=== PATIENT | female | born 1950 | race Caucasian/White ===

== ENCOUNTER 2017-07-24 13:04 | Observation (INO) | payer OTHER ==
[~2017-07-24] VITALS: Ht 162.6 cm; Wt 81.3 kg
--- NOTE | 2017-07-24 14:55 | EMERGENCY ROOM VISIT NOTE ---
History First contact with patient: 14:39 Chief Complaint: FLANK PAIN Stated Complaint: PAIN IN L SIDE History of Present Illness The patient is a 66 year old female who presents to the Emergency Room with complaints of left lower abdominal pain started 2 days ago. She describes it as a dull, aching sensation that is worse with movement. She also is complaining of feverish symptoms with body aches and chills. She thought that maybe she just had to have a bowel movement. She took milk of magnesia. She had a bowel movement that was reportedly normal. No blood in her stool or dark stools. She denies any vomiting. Her bowel movement did not change the pain. She denies any previous surgeries on her abdomen. No sick contacts. Review of Systems 10 system review performed and negative unless noted in HPI or below Past Medical/Surgical History Migraines Family History Diverticulitis, diabetes Social History Smoking Status: Never Smoker Marital Status: Housing Status: lives with significant other Current/Historical Medications Scheduled Calcium Carbonate (Tums), 500 MG PO DAILY Cholecalciferol (Kp Vitamin D), 2,000 UNITS PO DAILY Levothyroxine Sodium (Levothyroxine Sodium), 112 MCG PO DAILY Lovastatin (Mevacor), 20 MG PO Q2D Magnesium Hydroxide (Milk Of Magnesia), 30 ML PO DAILY Omeprazole (Prilosec), 20 MG PO DAILY Sumatriptan Succinate (Imitrex), 1 DOSE PO UD Physical Exam Vital Signs Date Time Temp Pulse Resp B/P (MAP) Pulse Ox O2 Delivery O2 Flow Rate FiO2 07/24/17 18:04 77 15 111/74 94 Room Air 07/24/17 17:06 76 14 117/67 95 Room Air 07/24/17 16:03 86 07/24/17 15:58 85 16 112/87 95 Room Air 07/24/17 15:57 95 Room Air 07/24/17 15:06 78 17 109/82 95 Room Air 07/24/17 13:22 36.9 90 20 127/79 95 Room Air Physical Exam VITALS: Vitals are noted on the nurse's note and reviewed by myself. Vital signs stable. GENERAL: 66-year-old female, in no acute distress, nondiaphoretic, well- developed well-nourished. SKIN: The skin was without rashes, erythema, edema, or bruising. HEAD: Normocephalic atraumatic. MOUTH: Mucous membranes moist. NECK: Supple without nuchal rigidity. No JVD. HEART: Regular rate and rhythm without murmurs gallops or rubs. LUNGS: Clear to auscultation bilaterally without wheezes, rales or rhonchi. No accessory muscle use. ABDOMEN: Positive bowel sounds x 4.Soft, tenderness to palpation in the left lower quadrant. Positive rebound tenderness. MUSCULOSKELETAL: No muscle atrophy, erythema, or edema noted. Normal gait. Strength 5/5 throughout. NEURO: Patient was alert and oriented to person place and time. Normal sensation to touch. No focal neurological deficits. Medical Decision & Procedures ER Provider Diagnostic Interpretation: ABD/PELVIS IV AND ORAL CONT CLINICAL HISTORY: 66 years-old Female presenting with LLQ abd pain ? diverticulitis. TECHNIQUE: Multidetector CT of the abdomen and pelvis was performed after the administration of oral and intravenous contrast. IV contrast: 94 mL of Optiray 320. A dose lowering technique was used consistent with the principles of ALARA (as low as reasonably achievable). COMPARISON: None. CT DOSE (mGy.cm): The estimated cumulative dose is 704.11 mGy.cm. FINDINGS: Tools Developer topogram: Unremarkable. Lung bases: Dependent reticulation. Nodular and groundglass opacity along the major fissure in the lingula. Normal heart size. No pericardial or pleural effusion. Liver: Normal morphology. Well-defined hypodensities in the liver, indeterminate but likely hepatic cysts or hamartomas. Minimal linear branching hypodensities extending from the right hepatic lobe lesion, which could suggest focal biliary ductal dilatation or less likely vascular thrombosis. Patent hepatic vasculature. Biliary: No intrahepatic or extrahepatic biliary ductal dilatation. Normal gallbladder. Pancreas: Duodenal diverticulum noted along the descending portion immediately superior to the level of the pancreatic head. Spleen: Normal. Adrenal glands: Normal. Kidneys and ureters: Contrast opacifies the renal collecting systems bilaterally. No hydronephrosis. Few left parapelvic cysts noted. Ureters normal. Bladder: Normal. Pelvic organs: Uterus normal. Prominent 2.2 cm simple appearing cyst in the left ovary. Bowel: Diverticulosis of the sigmoid colon. Along the junction of the descending and sigmoid colon, wall thickening and pericolonic inflammatory change evident. No convincing evidence of extraluminal gas adjacent fluid collection. Normal appendix. No bowel obstruction. Large hiatal hernia. Duodenal diverticulum. Peritoneal cavity: No free fluid or intraperitoneal gas. Vasculature: Atherosclerosis of the normal caliber abdominal aorta. IVC patent. Lymph nodes: No enlarged lymph nodes in the abdomen or pelvis. Abdominal wall: Normal. Musculoskeletal: Normal. IMPRESSION: 1. Evidence of acute uncomplicated diverticulitis of the sigmoid colon. No evidence of abscess or perforation. Follow-up colonoscopy after treatment is recommended given the patient's age to exclude neoplasm. 2. Large hiatal hernia. 3. 2.2 cm simple appearing cyst in the left ovary. In the setting of a late postmenopausal female, a simple appearing cyst less than 3 cm would be considered benign and no further follow-up would be recommended per the [employer] incidental findings committee recommendations for managing incidental findings on abdominal and pelvic CT and MRI. 4. Dependent opacities in the lungs may represent atelectasis. Nodularity in the lingula may also represent atypical atelectasis. Electronically signed by: Dami Forman M.D. 07/24/2017 6:11 PM Dictated Date/Time: 07/24/2017 6:02 PM The status of this report is Signed. Draft = Not yet reviewed or approved by Radiologist. Signed = Reviewed and approved by Radiologist. Laboratory Results 07/24/17 15:04 Red Blood Count 4.26, Mean Corpuscular Volume 91.1, Mean Corpuscular Hemoglobin 30.3, Mean Corpuscular Hemoglobin Concent 33.2, Mean Platelet Volume 9.2, Neutrophils (%) (Auto) 70.7, Lymphocytes (%) (Auto) 19.1, Monocytes (%) (Auto) 9.1, Eosinophils (%) (Auto) 0.6, Basophils (%) (Auto) 0.2, Neutrophils # (Auto) 4.64, Lymphocytes # (Auto) 1.25, Monocytes # (Auto) 0.60, Eosinophils # (Auto) 0.04, Basophils # (Auto) 0.01 07/24/17 15:04 Test 07/24/17 14:45 07/24/17 15:04 Urine Color YELLOW Urine Appearance CLEAR (CLEAR) Urine pH 5.5 (4.5-7.5) Urine Specific [place] 1.013 (1.000-1.030) Urine Protein NEG (NEG) Urine Glucose (UA) NEG (NEG) Urine Ketones TRACE (NEG) Urine Occult Blood 1+ (NEG) Urine Nitrite NEG (NEG) Urine Bilirubin NEG (NEG) Urine Urobilinogen NEG (NEG) Urine Leukocyte Esterase SMALL (NEG) Urine WBC (Auto) 5-10 /hpf (0-5) Urine RBC (Auto) 0-4 /hpf (0-4) Urine Hyaline Casts (Auto) 1-5 /lpf (0-5) Urine Epithelial Cells (Auto) >30 /lpf (0-5) Urine Bacteria (Auto) NEG (NEG) White Blood Count 6.56 K/uL (4.8-10.8) Red Blood Count 4.26 M/uL (4.2-5.4) Hemoglobin 12.9 g/dL (12.0-16.0) Hematocrit 38.8 % (37-47) Mean Corpuscular Volume 91.1 fL (80-100) Mean Corpuscular Hemoglobin 30.3 pg (25-34) Mean Corpuscular Hemoglobin Concent 33.2 g/dl (32-36) Platelet Count 210 K/uL (130-400) Mean Platelet Volume 9.2 fL (7.4-10.4) Neutrophils (%) (Auto) 70.7 % Lymphocytes (%) (Auto) 19.1 % Monocytes (%) (Auto) 9.1 % Eosinophils (%) (Auto) 0.6 % Basophils (%) (Auto) 0.2 % Neutrophils # (Auto) 4.64 K/uL (1.4-6.5) Lymphocytes # (Auto) 1.25 K/uL (1.2-3.4) Monocytes # (Auto) 0.60 K/uL (0.11-0.59) Eosinophils # (Auto) 0.04 K/uL (0-0.5) Basophils # (Auto) 0.01 K/uL (0-0.2) RDW Standard Deviation 43.4 fL (36.4-46.3) RDW Coefficient of Variation 13.1 % (11.5-14.5) Immature Granulocyte % (Auto) 0.3 % Immature Granulocyte # (Auto) 0.02 K/uL (0.00-0.02) Anion Gap 6.0 mmol/L (3-11) Est Creatinine Clear Calc Drug Dose 74.2 ml/min Estimated GFR () 93.3 Estimated GFR (Non- 80.5 BUN/Creatinine Ratio 10.8 (10-20) Calcium Level 9.2 mg/dl (8.5-10.1) Total Bilirubin 0.6 mg/dl (0.2-1) Aspartate Amino Transf (AST/SGOT) 21 U/L (15-37) Alanine Aminotransferase (ALT/SGPT) 26 U/L (12-78) Alkaline Phosphatase 84 U/L (45-117) Total Protein 7.2 gm/dl (6.4-8.2) Albumin 3.4 gm/dl (3.4-5.0) Globulin 3.8 gm/dl (2.5-4.0) Albumin/Globulin Ratio 0.9 (0.9-2) Lipase 133 U/L (73-393) Medications Administered Medications (Trade) Dose Ordered Sig/Ann Route Start Time Stop Time Status Last Admin Dose Admin Morphine Sulfate (MoRPHine SULFATE INJ) 4 mg ONE ONCE IV 07/24/17 15:00 07/24/17 15:01 DC 07/24/17 15:06 4 MG Sodium Chloride 1,000 ml @ 999 mls/hr Q1H1M ONCE IV 07/24/17 15:00 07/24/17 16:00 DC 07/24/17 15:06 999 MLS/HR Hydromorphone HCl (Dilaudid Inj) 0.5 mg NOW STAT IV 07/24/17 15:48 07/24/17 15:49 DC 07/24/17 15:54 0.5 MG ED Course Patient was seen and examined Vital signs including blood pressure were reviewed medications list was verified with patient Labs were obtained, and a saline lock was established The patient was hydrated with 1 L of normal saline. She was given morphine 4 mg IV Imaging was performed and reviewed On reevaluation, the patient was still complaining of pain. She was given Dilaudid 0.5 mg IV. She was also nauseated. She was given Zofran 4 mg IV We reviewed the results of the CT. She voiced understanding. She was still very nauseated. She was given another dose of Zofran 4 mg IV She was then given Phenergan 25 mg IM She was given 1 dose of Cipro 400 mg IV and Flagyl 500 mg IV The case was discussed with case management and my attending physician. I spoke with the [facility] hospitalist service, who is in agreement to admit the patient for further treatment Medical Decision DIFFERENTIAL DIAGNOSIS: Gastroenteritis, Hepatitis, cholecystitis, cholangitis, biliary colic, pancreatitis, appendicitis, inguinal hernia, nephrolithiasis, inflammatory bowel disease, mesenteric adenitis, peptic ulcer disease, GERD, gastritis, pancreatitis,, bowel obstruction, splenic infarct, diverticulitis, mesenteric ischemia, metabolic, peritonitis, among others. This patient is a 66-year-old female that presented to the emergency department with left lower quadrant abdominal pain and nausea. The patient's physical exam revealed a tenderness in the left lower quadrant. There was concern for diverticulitis. A CT confirmed sigmoid diverticulitis. I do not think the patient will do well if she was discharged home as she is still very nauseated after multiple anti nausea medications. The case was discussed with the hospitalist. They are in agreement for nausea. Of note, the patient also has a left ovarian cyst. I do not however think that this is the cause of her abdominal pain. She may follow-up with her primary care physician or her behavioral health tech for this. Impression Primary Impression: Diverticulitis large intestine Departure Information Referrals No Doctor, Assigned (PCP) Patient Instructions My [facility]
[2017-07-24] MEDS ORDERED: SODIUM CHLORIDE 0.9% 1000ML 1,000 ML IV ONE (15:00)
[2017-07-24] MEDS ORDERED: MoRPHine SULFATE 4 MG/ML 1 ML CARP\\VIAL IV ONE (15:00)
[2017-07-24] MEDS ORDERED: PRMVC PV (15:10)
[2017-07-24 15:31] LABS: URINE APPEARANCE CLEAR (CLEAR); URINE BILIRUBIN NEG (NEG); URINE COLOR YELLOW; URINE EPITHELIAL CELL AUTO >30 /lpf (0-5); URINE NITRITE NEG (NEG); URINE PH 5.5 (4.5-7.5); URINE SPECIFIC GRAVITY 1.013 (1.000-1.030); UROBILINOGEN NEG (NEG)
[2017-07-24 15:32] LABS: MANUAL MICROSCOPIC REQUIRED? NO; REVIEW REQ? NO
[2017-07-24 15:45] LABS: BUN/CREATININE RATIO 10.8 (10-20); CALCIUM 9.2 mg/dl (8.5-10.1); CREATININE 0.77 mg/dl (0.60-1.20); POTASSIUM 3.9 mmol/L (3.5-5.1)
[2017-07-24 15:48] LABS: ALB/GLOB RATIO 0.9 (0.9-2)
[2017-07-24] MEDS ORDERED: HYDROmorphone INJ 0.5 MG/0.5 ML SYR IV STA (15:48)
[2017-07-24 16:03] LABS: BASO % 0.2 %; BASO ABS # 0.01 K/uL (0-0.2); COMPLETE YES; EOS % 0.6 %; HEMATOCRIT 38.8 % (37-47); IG% 0.3 %; LYMPH % 19.1 %; LYMPH ABS # 1.25 K/uL (1.2-3.4); MEAN CELL VOLUME 91.1 fL (80-100); MEAN CORPUSCULAR HEMOGLOBIN 30.3 pg (25-34); MEAN CORPUSCULAR HGB CONC 33.2 g/dl (32-36); MEAN PLATELET VOLUME 9.2 fL (7.4-10.4); MONO % 9.1 %; NEUT % 70.7 %; PLATELET COUNT 210 K/uL (130-400); RED BLOOD COUNT 4.26 M/uL (4.2-5.4); WHITE BLOOD COUNT 6.56 K/uL (4.8-10.8)
[2017-07-24] MEDS ORDERED: OPTIRAY 320 IV PRN (17:45)
--- NOTE | 2017-07-24 18:13 | DIAGNOSTIC IMAGING REPORT ---
ABD/PELVIS IV AND ORAL CONT CLINICAL HISTORY: 66 years-old Female presenting with LLQ abd pain ? diverticulitis. TECHNIQUE: Multidetector CT of the abdomen and pelvis was performed after the administration of oral and intravenous contrast. IV contrast: 94 mL of Optiray 320. A dose lowering technique was used consistent with the principles of ALARA (as low as reasonably achievable). COMPARISON: None. CT DOSE (mGy.cm): The estimated cumulative dose is 704.11 mGy.cm. FINDINGS: Community Support Associate topogram: Unremarkable. Lung bases: Dependent reticulation. Nodular and groundglass opacity along the major fissure in the lingula. Normal heart size. No pericardial or pleural effusion. Liver: Normal morphology. Well-defined hypodensities in the liver, indeterminate but likely hepatic cysts or hamartomas. Minimal linear branching hypodensities extending from the right hepatic lobe lesion, which could suggest focal biliary ductal dilatation or less likely vascular thrombosis. Patent hepatic vasculature. Biliary: No intrahepatic or extrahepatic biliary ductal dilatation. Normal gallbladder. Pancreas: Duodenal diverticulum noted along the descending portion immediately superior to the level of the pancreatic head. Spleen: Normal. Adrenal glands: Normal. Kidneys and ureters: Contrast opacifies the renal collecting systems bilaterally. No hydronephrosis. Few left parapelvic cysts noted. Ureters normal. Bladder: Normal. Pelvic organs: Uterus normal. Prominent 2.2 cm simple appearing cyst in the left ovary. Bowel: Diverticulosis of the sigmoid colon. Along the junction of the descending and sigmoid colon, wall thickening and pericolonic inflammatory change evident. No convincing evidence of extraluminal gas adjacent fluid collection. Normal appendix. No bowel obstruction. Large hiatal hernia. Duodenal diverticulum. Peritoneal cavity: No free fluid or intraperitoneal gas. Vasculature: Atherosclerosis of the normal caliber abdominal aorta. IVC patent. Lymph nodes: No enlarged lymph nodes in the abdomen or pelvis. Abdominal wall: Normal. Musculoskeletal: Normal. IMPRESSION: 1. Evidence of acute uncomplicated diverticulitis of the sigmoid colon. No evidence of abscess or perforation. Follow-up colonoscopy after treatment is recommended given the patient's age to exclude neoplasm. 2. Large hiatal hernia. 3. 2.2 cm simple appearing cyst in the left ovary. In the setting of a late postmenopausal female, a simple appearing cyst less than 3 cm would be considered benign and no further follow-up would be recommended per the [employer] incidental findings committee recommendations for managing incidental findings on abdominal and pelvic CT and MRI. 4. Dependent opacities in the lungs may represent atelectasis. Nodularity in the lingula may also represent atypical atelectasis. Electronically signed by: Dami Forman M.D. 07/24/2017 6:11 PM Dictated Date/Time: 07/24/2017 6:02 PM
[2017-07-24] MEDS ORDERED: ONDANSETRON INJ 2 MG/ML 2 ML VIAL IV PRN ×2 (18:15→20:30)
[2017-07-24] MEDS ORDERED: CIPROFLOXACIN 400MG / 200ML D5W IV STA (18:37)
[2017-07-24] MEDS ORDERED: METRONIDAZOLE 500MG / 100ML NSS IV STA (18:37)
[2017-07-24] MEDS ORDERED: PROMETHAZINE HCL INJ 25 MG/ML 1 ML VIAL IM STA (18:37)
--- NOTE | 2017-07-24 20:24 | EMERGENCY ROOM VISIT NOTE ---
ED Visit Note First contact with patient: 14:39 HPI: LLQ abd pain PE: AFVSS, uncomfortable but NAD NC/AT dry MM RRR, no murmurs CTAB Abd +LLQ TTP. no pertioneal signs Ext: no edema, erythema Neuro: grossly intact Plan: CT +uncomplicated diverticulitis. However considering patient uncomfortable with nausea will admit. ABX. I reviewed the patient's past medical history, medications, and visit nursing notes. I discussed the case with the physician assistant department manager, examined the patient, and agree with the findings and plan as documented in the physician assistants note.
[2017-07-24] MEDS ORDERED: ALUMINUM/MAGNESIUM/SIMETH (MAALOX MAX) 30 ML UDC PO PRN (20:30)
[2017-07-24] MEDS ORDERED: ZOLPIDEM TARTRATE 5 MG TAB PO PRN (20:30)
[2017-07-24] MEDS ORDERED: MAGNESIUM HYDROXIDE SUSP 30 ML UDC PO PRN (20:30)
[2017-07-24] MEDS ORDERED: IV FLUIDS COMPLETED PRN (20:30)
[2017-07-24] MEDS ORDERED: POLYETHYLENE (MIRALAX) 17 GM PACK PO PRN (20:30)
[2017-07-24] MEDS ORDERED: HYDROmorphone INJ 0.5 MG/0.5 ML SYR IV PRN (20:30)
[2017-07-24] MEDS ORDERED: SUMATRIPTAN SUCCINATE 25 MG TAB PO PRN (20:30)
[2017-07-24] MEDS ORDERED: ACETAMINOPHEN 325 MG TAB PO PRN (20:30)
--- NOTE | 2017-07-24 21:17 | History and Physical ---
History & Physical Date & Time of Service: Jul 24, 2017 at 20:52 Chief Complaint: Pain In L Side Primary Care Physician: No Doctor, Assigned History of Present Illness Source: patient, hospital records This is a 66 year old female with PMH of PSVT s/p ablation, hypothyroidism, dyslipidemia, GERD, and other problems listed below who presents to the ED for abdominal pain. Pt is a prior patient of Dr. Hensley. Pt reports LLQ abdominal pain x 3 days. Tried taking milk of magnesia without improvement. Was able to work the past few days, but then today pain was more severe which prompted her ER visit. Has associated chills. Denies N/V at home, but reports nausea /dry heaving in ER after drinking contrast. Nausea resolved with Zofran and Phenergan. Pain is now controlled after IV morphine and Dilaudid given in ER. Had reflux today which resolved with Tums. Last BM this morning was normal. Denies fever, dizziness, palpitations, chest pain, SOB, diarrhea, hematochezia, melena, urinary changes. Last colonoscopy in 01/[address] Gonzalez showed diverticulosis. Denies prior episode of diverticulitis. Past Medical/Surgical History Medical Problems: (1) Constipation Status: Chronic (2) Dyslipidemia Status: Chronic (3) GERD (gastroesophageal reflux disease) Status: Chronic (4) Hypothyroidism Status: Chronic (5) Obesity (BMI 30.0-34.9) Status: Chronic (6) PSVT (paroxysmal supraventricular tachycardia) Permanent Comment: s/p ablation Status: Chronic Surgical Problems: (1) H/O breast surgery Status: Chronic (2) History of cataract surgery Status: Chronic Family History Diabetes mellitus MOTHER SISTER GRANDMOTHER Social History Smoking Status: Never Smoker Alcohol Use: none Drug Use: none Marital Status: Housing status: lives with significant other Occupational Status: employed (works as industrial welder) Allergies Coded Allergies: Sulfa Antibiotics (Verified Adverse Reaction, Mild, GI Symptoms, 07/24/17) Home Medications Scheduled Calcium Carbonate (Tums), 500 MG PO DAILY Cholecalciferol (Kp Vitamin D), 2,000 UNITS PO DAILY Levothyroxine Sodium (Levothyroxine Sodium), 112 MCG PO DAILY Lovastatin (Mevacor), 20 MG PO Q2D Magnesium Hydroxide (Milk Of Magnesia), 30 ML PO DAILY Omeprazole (Prilosec), 20 MG PO DAILY Sumatriptan Succinate (Imitrex), 1 DOSE PO UD Review of Systems Ten systems reviewed and negative except as noted in HPI. Physical Exam Vital Signs Date Time Temp Pulse Resp B/P (MAP) Pulse Ox O2 Delivery O2 Flow Rate FiO2 07/24/17 20:10 73 18 109/54 94 Room Air 07/24/17 18:04 77 15 111/74 94 Room Air 07/24/17 17:06 76 14 117/67 95 Room Air 07/24/17 16:03 86 07/24/17 15:58 85 16 112/87 95 Room Air 07/24/17 15:57 95 Room Air 07/24/17 15:06 78 17 109/82 95 Room Air 07/24/17 13:22 36.9 90 20 127/79 95 Room Air General Appearance: WD/WN, no apparent distress Head: normocephalic, atraumatic Eyes: normal inspection, sclerae normal ENT: hearing grossly normal, pharynx normal Neck: supple, trachea midline Respiratory/Chest: lungs clear, normal breath sounds, no respiratory distress, no accessory muscle use Cardiovascular: regular rate, rhythm, no murmur Abdomen/GI: normal bowel sounds, soft, + tenderness (LLQ. no guarding. ) Extremities/Musculoskelatal: no calf tenderness, no pedal edema Neurologic/Psych: alert, normal mood/affect, oriented x 3 Skin: normal color, warm/dry Diagnostics Laboratory Results Results Past 24 Hours Test 07/24/17 14:45 07/24/17 15:04 Range/Units Urine Color YELLOW Urine Appearance CLEAR CLEAR Urine pH 5.5 4.5-7.5 Urine Specific [place] 1.013 1.000-1.030 Urine Protein NEG NEG Urine Glucose (UA) NEG NEG Urine Ketones TRACE NEG Urine Occult Blood 1+ NEG Urine Nitrite NEG NEG Urine Bilirubin NEG NEG Urine Urobilinogen NEG NEG Urine Leukocyte Esterase SMALL NEG Urine WBC (Auto) 5-10 0-5 /hpf Urine RBC (Auto) 0-4 0-4 /hpf Urine Hyaline Casts (Auto) 1-5 0-5 /lpf Urine Epithelial Cells (Auto) >30 0-5 /lpf Urine Bacteria (Auto) NEG NEG White Blood Count 6.56 4.8-10.8 K/uL Red Blood Count 4.26 4.2-5.4 M/uL Hemoglobin 12.9 12.0-16.0 g/dL Hematocrit 38.8 37-47 % Mean Corpuscular Volume 91.1 80-100 fL Mean Corpuscular Hemoglobin 30.3 25-34 pg Mean Corpuscular Hemoglobin Concent 33.2 32-36 g/dl Platelet Count 210 130-400 K/uL Mean Platelet Volume 9.2 7.4-10.4 fL Neutrophils (%) (Auto) 70.7 % Lymphocytes (%) (Auto) 19.1 % Monocytes (%) (Auto) 9.1 % Eosinophils (%) (Auto) 0.6 % Basophils (%) (Auto) 0.2 % Neutrophils # (Auto) 4.64 1.4-6.5 K/uL Lymphocytes # (Auto) 1.25 1.2-3.4 K/uL Monocytes # (Auto) 0.60 0.11-0.59 K/uL Eosinophils # (Auto) 0.04 0-0.5 K/uL Basophils # (Auto) 0.01 0-0.2 K/uL RDW Standard Deviation 43.4 36.4-46.3 fL RDW Coefficient of Variation 13.1 11.5-14.5 % Immature Granulocyte % (Auto) 0.3 % Immature Granulocyte # (Auto) 0.02 0.00-0.02 K/uL Sodium Level 137 136-145 mmol/L Potassium Level 3.9 3.5-5.1 mmol/L Chloride Level 103 98-107 mmol/L Carbon Dioxide Level 28 21-32 mmol/L Anion Gap 6.0 3-11 mmol/L Blood Urea Nitrogen 8 7-18 mg/dl Creatinine 0.77 0.60-1.20 mg/dl Est Creatinine Clear Calc Drug Dose 74.2 ml/min Estimated GFR () 93.3 Estimated GFR (Non- 80.5 BUN/Creatinine Ratio 10.8 10-20 Random Glucose 100 70-99 mg/dl Calcium Level 9.2 8.5-10.1 mg/dl Total Bilirubin 0.6 0.2-1 mg/dl Aspartate Amino Transf (AST/SGOT) 21 15-37 U/L Alanine Aminotransferase (ALT/SGPT) 26 12-78 U/L Alkaline Phosphatase 84 45-117 U/L Total Protein 7.2 6.4-8.2 gm/dl Albumin 3.4 3.4-5.0 gm/dl Globulin 3.8 2.5-4.0 gm/dl Albumin/Globulin Ratio 0.9 0.9-2 Lipase 133 73-393 U/L Microbiology Results 07/24/17 Urine Culture, Received Pending Diagnostic Radiology ABD/PELVIS IV AND ORAL CONT CLINICAL HISTORY: 66 years-old Female presenting with LLQ abd pain ? diverticulitis. TECHNIQUE: Multidetector CT of the abdomen and pelvis was performed after the administration of oral and intravenous contrast. IV contrast: 94 mL of Optiray 320. A dose lowering technique was used consistent with the principles of ALARA (as low as reasonably achievable). COMPARISON: None. CT DOSE (mGy.cm): The estimated cumulative dose is 704.11 mGy.cm. FINDINGS: Moving Consultant topogram: Unremarkable. Lung bases: Dependent reticulation. Nodular and groundglass opacity along the major fissure in the lingula. Normal heart size. No pericardial or pleural effusion. Liver: Normal morphology. Well-defined hypodensities in the liver, indeterminate but likely hepatic cysts or hamartomas. Minimal linear branching hypodensities extending from the right hepatic lobe lesion, which could suggest focal biliary ductal dilatation or less likely vascular thrombosis. Patent hepatic vasculature. Biliary: No intrahepatic or extrahepatic biliary ductal dilatation. Normal gallbladder. Pancreas: Duodenal diverticulum noted along the descending portion immediately superior to the level of the pancreatic head. Spleen: Normal. Adrenal glands: Normal. Kidneys and ureters: Contrast opacifies the renal collecting systems bilaterally. No hydronephrosis. Few left parapelvic cysts noted. Ureters normal. Bladder: Normal. Pelvic organs: Uterus normal. Prominent 2.2 cm simple appearing cyst in the left ovary. Bowel: Diverticulosis of the sigmoid colon. Along the junction of the descending and sigmoid colon, wall thickening and pericolonic inflammatory change evident. No convincing evidence of extraluminal gas adjacent fluid collection. Normal appendix. No bowel obstruction. Large hiatal hernia. Duodenal diverticulum. Peritoneal cavity: No free fluid or intraperitoneal gas. Vasculature: Atherosclerosis of the normal caliber abdominal aorta. IVC patent. Lymph nodes: No enlarged lymph nodes in the abdomen or pelvis. Abdominal wall: Normal. Musculoskeletal: Normal. IMPRESSION: 1. Evidence of acute uncomplicated diverticulitis of the sigmoid colon. No evidence of abscess or perforation. Follow-up colonoscopy after treatment is recommended given the patient's age to exclude neoplasm. 2. Large hiatal hernia. 3. 2.2 cm simple appearing cyst in the left ovary. In the setting of a late postmenopausal female, a simple appearing cyst less than 3 cm would be considered benign and no further follow-up would be recommended per the [employer] incidental findings committee recommendations for managing incidental findings on abdominal and pelvic CT and MRI. 4. Dependent opacities in the lungs may represent atelectasis. Nodularity in the lingula may also represent atypical atelectasis. Impression Assessment and Plan ACUTE SIGMOID DIVERTICULITIS Initial episode Afebrile, no leukocytosis CT a/p- acute uncomplicated diverticulitis of sigmoid colon, no abscess or perforation, follow up colonoscopy after treatment recommended given patient's age to exclude neoplasm Continue IV Cipro and Flagyl started in ER IV fluids Clear liquid diet; advance to low residue as tolerated PRN antiemetics and analgesics Consult GI Outpatient colonoscopy in 6-8 weeks HYPOTHYROIDISM Continue levothyroxine HX PSVT S/p ablation; no acute issues DYSLIPIDEMIA Continue statin GERD Continue PPI DVT PROPHYLAXIS Heparin SQ FULL CODE DISPOSITION Observation to med / surg Followed by Dr. Hensley in the past; would like to establish with Dr. Turcios in [place] as Dr. Hensley is retiring Patient seen in collaboration with Dr. Spann. Please see her addendum. ATTENDING NOTE : Pt seen and examined at bedside , Labs and images reviewed , care co ordinated with Aruna Mayer PA-C in agreement with above H&P briefly 66 yo F with no significant past medical hx presented to Ed with complain of 2 days hx of pain /discomfort on left lower abdomen no fever , episodes of chills , pain is sharp /throbbing , non radiating no diarrhea or dark stool , had nausea , no vomiting , appetite was fair pt thought possible constipation causing her abdominal discomfort took milk of magnesia had normal bowel movement this AM ,with no relief of her symptom in the ER pt was afebrile , vitals were stable , normal white count and electrolyte CT abdomen /pelvis showed ; acute sigmoid diverticulitis P/E: Gen : very pleasant , no apparent distress noted HEENT ; sclera non icteric HT: regular Lungs; CTA Abdomen : soft, point tenderness on left lower quadrant , no rebound or guarding bowel sound active EXT ; no rash , edema or deformity Neuro; no focal deficit A/P : Acute sigmoid diverticulitis: no evidence of sepsis -admit to medical floor , IVF empiric Abx with IV Cipro and Flagyl can be transitioned to oral in next 24-48 hrs Clear liquid diet , advance to low residue diet as tolerated GI eval requested Colonoscopy last year shows diverticulosis may need out pt interval colonoscopy in few weeks after acute infections subsides -will defer to GI team for recommendation FULL CODE please refer to Aruna Mayer PA-C documentation for further discussion of chronic issues Nadya Spann MD Level of Care Telemetry Resuscitation Status FULL RESUSCITATION VTE Prophylaxis VTE Risk Assessment Done? Y/N: Yes Risk Level: Moderate Given or contraindicated: Unfractionated heparin SQ Additional Copies To Lillian Turcios D.O.
[2017-07-24 22:19] VITALS: BP 114/74; PULSE 69; TEMP 36.6; O2SAT 92; Ht 162.6 cm; Wt 81.3 kg
[2017-07-24 22:34] LABS: PARTIAL THROMBOPLASTIN RATIO 1.2; PROTHROMBIN TIME (PATIENT) 10.5 SECONDS (9.0-12.0)
[2017-07-24] MEDS: SODIUM CHLORIDE 0.9% 1000ML 1,000 ML IV SCH (22:43)
[2017-07-25 00:24] VITALS: BP 101/66; PULSE 71; TEMP 36.8; O2SAT 95
[2017-07-25] MEDS: METRONIDAZOLE / NSS 500 MG in PREMIXED NSS 100 ML IV SCH ×3 (02:23→17:37)
[2017-07-25] MEDS: LEVOTHYROXINE 112 MCG TAB PO SCH (06:51)
[2017-07-25 07:22] VITALS: BP 107/68; PULSE 70; TEMP 36.8; O2SAT 96
[2017-07-25] MEDS ORDERED: MAGNESIUM HYDROXIDE SUSP 30 ML UDC PO SCH (08:00)
[2017-07-25 08:45] VITALS: O2SAT 96
[2017-07-25] MEDS: CIPROFLOXACIN / D5W 400 MG in PREMIXED IN D5W 200 ML IV SCH ×2 (08:49→20:23)
[2017-07-25 08:50] LABS: HEMATOCRIT 38.2 % (37-47); MEAN CELL VOLUME 91.4 fL (80-100); MEAN CORPUSCULAR HEMOGLOBIN 29.2 pg (25-34); MEAN CORPUSCULAR HGB CONC 31.9 g/dl (32-36); MEAN PLATELET VOLUME 9.1 fL (7.4-10.4); PLATELET COUNT 199 K/uL (130-400); RED BLOOD COUNT 4.18 M/uL (4.2-5.4); WHITE BLOOD COUNT 5.25 K/uL (4.8-10.8)
[2017-07-25] MEDS: SODIUM CHLORIDE 0.9% 1000ML 1,000 ML IV SCH ×2 (08:50→17:42)
[2017-07-25] MEDS: PANTOprazole SOD 40 MG TAB PO SCH (08:50)
[2017-07-25] MEDS: CHOLECALCIFEROL 1000 INTER.UNIT TAB PO SCH (08:50)
[2017-07-25] MEDS: CALCIUM CARBONATE 500 MG CHEWABLE PO SCH (08:51)
[2017-07-25] MEDS: MAGNESIUM HYDROXIDE SUSP 30 ML UDC PO SCH (08:51)
[2017-07-25] MEDS: HEPARIN SOD 5000 UNIT/0.5 ML CARP SQ SCH ×2 (08:56→20:28)
[2017-07-25 09:24] LABS: BUN/CREATININE RATIO 8.7 (10-20); CALCIUM 9.1 mg/dl (8.5-10.1); CREATININE 0.7 mg/dl (0.60-1.20); POTASSIUM 3.8 mmol/L (3.5-5.1)
--- NOTE | 2017-07-25 13:30 | Medical Consult ---
Consultation Note Date of Service Jul 25, 2017. Consultation Note Chart reviewed. Per medical records, pt with 3 days of LLQ pain, CT shows evidence of uncomplicated diverticulitis. S/p recent cscopy for screening in 2015, showing only diverticulosis. On cipro, flagyl, analgesia, and bowel rest. No further recs - please continue IV abx and bowel rest until pt is able to tolerate PO. Pt should complete 7-10 d of abx. She is s/p recent colonoscopy; this does not need to be repeated after episode resolves. Please re-scan and consult surgery service if pt fails to improve. Will sign off, but please reconsult as needed.
[2017-07-25 15:58] VITALS: O2SAT 96
[2017-07-25 16:00] VITALS: BP 101/65; PULSE 64; TEMP 36.8; O2SAT 96
--- NOTE | 2017-07-25 16:12 | Progress Note ---
Internal Med Progress Note Date of Service: Jul 25, 2017. Provider Documentation: SUBJECTIVE: abdominal pain is better nausea resolved tolerating clears afebrile no sob or chest pain no blood in stools OBJECTIVE: Vital Signs-as noted below Exam: General-alert and oriented. Not in distress ENT-normal hearing Neck-no neck masses Lungs-cta b/l no wheezing or crackles Heart-s1 and s2 heard regular rate and rhythm, no murmurs Abdomen-soft bowel sounds present mild LLQ tender no distension Extremities no edema no erythema Neuro-alert and oriented moves extremities Lab data as noted below. ASSESSMENT & PLAN: ACUTE SIGMOID DIVERTICULITIS on iv Cipro and Flagyl\ iv fluids pain meds and antiemetics prn tolerating clears seen by GI and plan for colonoscopy as recent scope was fine will monitor HYPOTHYROIDISM On levothyroxine HX PSVT S/p ablation;stable DYSLIPIDEMIA On statin GERD On PPI DVT PROPHYLAXIS Heparin SQ FULL CODE DISPOSITION to be determined Vital Signs: Date Time Temp Pulse Resp B/P (MAP) Pulse Ox O2 Delivery O2 Flow Rate FiO2 07/25/17 16:00 36.8 64 20 101/65 (77) 96 07/25/17 15:58 96 Room Air 07/25/17 08:45 96 Room Air 07/25/17 07:22 36.8 70 16 107/68 (81) 96 Room Air 07/25/17 01:55 Room Air 07/25/17 00:24 36.8 71 18 101/66 (78) 95 Room Air 07/24/17 22:19 36.6 69 16 114/74 92 Room Air 07/24/17 22:19 36.6 69 16 114/74 (87) 92 Room Air 07/24/17 20:10 73 18 109/54 94 Room Air 07/24/17 18:04 77 15 111/74 94 Room Air 07/24/17 17:06 76 14 117/67 95 Room Air Lab Results: Results Past 24 Hours Test 07/25/17 08:32 Range/Units White Blood Count 5.25 4.8-10.8 K/uL Red Blood Count 4.18 4.2-5.4 M/uL Hemoglobin 12.2 12.0-16.0 g/dL Hematocrit 38.2 37-47 % Mean Corpuscular Volume 91.4 80-100 fL Mean Corpuscular Hemoglobin 29.2 25-34 pg Mean Corpuscular Hemoglobin Concent 31.9 32-36 g/dl RDW Standard Deviation 42.9 36.4-46.3 fL RDW Coefficient of Variation 12.8 11.5-14.5 % Platelet Count 199 130-400 K/uL Mean Platelet Volume 9.1 7.4-10.4 fL Sodium Level 140 136-145 mmol/L Potassium Level 3.8 3.5-5.1 mmol/L Chloride Level 107 98-107 mmol/L Carbon Dioxide Level 29 21-32 mmol/L Anion Gap 4.0 3-11 mmol/L Blood Urea Nitrogen 6 7-18 mg/dl Creatinine 0.70 0.60-1.20 mg/dl Est Creatinine Clear Calc Drug Dose 81.6 ml/min Estimated GFR () 104.6 Estimated GFR (Non- 90.3 BUN/Creatinine Ratio 8.7 10-20 Random Glucose 114 70-99 mg/dl Calcium Level 9.1 8.5-10.1 mg/dl
[2017-07-25] MEDS ORDERED: LOVASTATIN 20 MG TAB PO SCH (21:00)
[2017-07-26 00:09] VITALS: BP 117/69; PULSE 64; TEMP 36.7; O2SAT 94
[2017-07-26] MEDS: SODIUM CHLORIDE 0.9% 1000ML 1,000 ML IV SCH ×3 (01:38→18:10)
[2017-07-26] MEDS: METRONIDAZOLE / NSS 500 MG in PREMIXED NSS 100 ML IV SCH ×3 (01:38→18:10)
[2017-07-26] MEDS: LEVOTHYROXINE 112 MCG TAB PO SCH (05:48)
[2017-07-26] MEDS: CIPROFLOXACIN / D5W 400 MG in PREMIXED IN D5W 200 ML IV SCH ×2 (07:55→20:41)
[2017-07-26] MEDS: MAGNESIUM HYDROXIDE SUSP 30 ML UDC PO SCH (07:56)
[2017-07-26] MEDS: CHOLECALCIFEROL 1000 INTER.UNIT TAB PO SCH (07:56)
[2017-07-26] MEDS: CALCIUM CARBONATE 500 MG CHEWABLE PO SCH (07:56)
[2017-07-26] MEDS: PANTOprazole SOD 40 MG TAB PO SCH (07:56)
[2017-07-26] MEDS: HEPARIN SOD 5000 UNIT/0.5 ML CARP SQ SCH ×2 (07:59→20:56)
[2017-07-26 08:01] VITALS: BP 110/67; PULSE 80; TEMP 37; O2SAT 94
--- NOTE | 2017-07-26 14:58 | Progress Note ---
Internal Med Progress Note Date of Service: Jul 26, 2017. Provider Documentation: SUBJECTIVE: mild soreness in left lower abdomen nausea resolved tolerating soft diet afebrile moved bowels twice yesterday and was no blood in it OBJECTIVE: Vital Signs-as noted below Exam: General-alert and oriented. Not in distress ENT-normal hearing Neck-no neck masses Lungs-cta b/l no wheezing or crackles Heart-s1 and s2 heard regular rate and rhythm, no murmurs Abdomen-soft bowel sounds present mild LLQ discomfort no distension Extremities no edema no erythema Neuro-alert and oriented moves extremities Lab data as noted below. ASSESSMENT & PLAN: ACUTE SIGMOID DIVERTICULITIS on iv Cipro and Flagyl\ iv fluids pain meds and antiemetics prn tolerating clears seen by GI and no plan for colonoscopy as recent scope was fine improving and tolerating soft diet HYPOTHYROIDISM On levothyroxine HX PSVT S/p ablation;stable DYSLIPIDEMIA On statin GERD On PPI DVT PROPHYLAXIS Heparin SQ ambulate. FULL CODE DISPOSITION possible d/c in am Vital Signs: Date Time Temp Pulse Resp B/P (MAP) Pulse Ox O2 Delivery O2 Flow Rate FiO2 07/26/17 08:30 Room Air 07/26/17 08:01 37.0 80 18 110/67 (81) 94 Room Air 07/26/17 00:09 36.7 64 16 117/69 (85) 94 Room Air 07/26/17 00:00 Room Air 07/25/17 16:00 36.8 64 20 101/65 (77) 96 07/25/17 15:58 96 Room Air
[2017-07-26 16:28] VITALS: BP 119/71; PULSE 70; TEMP 36.5; O2SAT 98
[2017-07-26 20:05] VITALS: O2SAT 98
[2017-07-26 23:34] VITALS: BP 120/71; PULSE 72; TEMP 36.6; O2SAT 97
[2017-07-27 00:05] VITALS: O2SAT 98
[2017-07-27] MEDS: METRONIDAZOLE / NSS 500 MG in PREMIXED NSS 100 ML IV SCH ×2 (02:23→10:01)
[2017-07-27] MEDS: LEVOTHYROXINE 112 MCG TAB PO SCH (05:59)
[2017-07-27 06:27] LABS: HEMATOCRIT 34.4 % (37-47); MEAN CELL VOLUME 87.8 fL (80-100); MEAN CORPUSCULAR HEMOGLOBIN 30.6 pg (25-34); MEAN CORPUSCULAR HGB CONC 34.9 g/dl (32-36); MEAN PLATELET VOLUME 8.7 fL (7.4-10.4); PLATELET COUNT 202 K/uL (130-400); RED BLOOD COUNT 3.92 M/uL (4.2-5.4); WHITE BLOOD COUNT 3.21 K/uL (4.8-10.8)
[2017-07-27 08:17] VITALS: BP 116/66; PULSE 67; TEMP 36.6; O2SAT 97
[2017-07-27] MEDS: MAGNESIUM HYDROXIDE SUSP 30 ML UDC PO SCH (08:45)
[2017-07-27] MEDS: CHOLECALCIFEROL 1000 INTER.UNIT TAB PO SCH (08:46)
[2017-07-27] MEDS: CALCIUM CARBONATE 500 MG CHEWABLE PO SCH (08:46)
[2017-07-27] MEDS: PANTOprazole SOD 40 MG TAB PO SCH (08:46)
[2017-07-27] MEDS: CIPROFLOXACIN / D5W 400 MG in PREMIXED IN D5W 200 ML IV SCH (08:46)
[2017-07-27] MEDS: HEPARIN SOD 5000 UNIT/0.5 ML CARP SQ SCH (08:51)
[2017-07-27] MEDS ORDERED: METR-163 PO ×2 (13:22→13:32)
[2017-07-27] MEDS ORDERED: CIPR-255 PO ×2 (13:22→13:32)
[2017-07-27] MEDS ORDERED: LCTX PO ×2 (13:31→13:32)
--- NOTE | 2017-07-27 13:35 | Discharge Instructions ---
Discharge Instructions Date of Service Jul 27, 2017. Admission Reason for Admission: Diverticulitis Large Intestine Discharge Discharge Diagnosis / Problem: sigmoid diverticulitis Discharge Goals Goal(s): Decrease discomfort, Improve function Activity Recommendations Activity Limitations: resume your previous activity . Instructions / Follow-Up Instructions / Follow-Up FOLLOWUP WITH FAMILY DOCTOR ON June AT 1:25PM Current Hospital Diet Patient's current hospital diet: Low Fiber Diet Discharge Diet Recommended Diet: Low Fiber Diet (LOW FIBER DIET FOR FEW DAYS) Pending Studies Studies pending at discharge: no Work Instructions Return To Work: after follow-up Additional Instructions: LEAVE FROM WORK UNTIL SEEN BY FAMILY DOCTOR ON June. Medical Emergencies . Who to Call and When: Medical Emergencies: If at any time you feel your situation is an emergency, please call 911 immediately. . Non-Emergent Contact Non-Emergency issues call your: Primary Care Provider . . "Provider Documentation" section prepared by Ronaldo aMcario. . VTE Core Measure Inpt VTE Proph given/why not?: Unfractionated heparin SQ
[2017-07-27] MEDS: SODIUM CHLORIDE 0.9% 1000ML 1,000 ML IV SCH (13:38)
[2017-07-27 13:42] VITALS: BP 116/66; PULSE 67; TEMP 36.6; O2SAT 97
--- NOTE | 2017-07-27 14:55 | Progress Note ---
Internal Med Progress Note Date of Service: Jul 27, 2017. Provider Documentation: SUBJECTIVE: abdominal pain and nausea resolved no diarrhea no nausea afebrile tolerating soft diet ok for discharge OBJECTIVE: Vital Signs-as noted below Exam: General-alert and oriented. Not in distress ENT-normal hearing Neck-no neck masses Lungs-cta b/l no wheezing or crackles Heart-s1 and s2 heard regular rate and rhythm, no murmurs Abdomen-soft bowel sounds present no LLQ discomfort no distension Extremities no edema no erythema Neuro-alert and oriented moves extremities Lab data as noted below. ASSESSMENT & PLAN: ACUTE SIGMOID DIVERTICULITIS on iv Cipro and Flagyl\ iv fluids pain meds and antiemetics prn tolerating clears seen by GI and no plan for colonoscopy as recent scope was fine improving and tolerating soft diet discharged on po abx to complete course of cipro and flagyl f/u with pcp HYPOTHYROIDISM On levothyroxine HX PSVT S/p ablation;stable DYSLIPIDEMIA On statin GERD On PPI discharged home Vital Signs: Date Time Temp Pulse Resp B/P (MAP) Pulse Ox O2 Delivery O2 Flow Rate FiO2 07/27/17 13:42 36.6 67 18 97 Room Air 07/27/17 11:18 Room Air 07/27/17 08:17 36.6 67 18 116/66 (83) 97 Room Air 07/27/17 00:05 98 Room Air 07/26/17 23:34 36.6 72 20 120/71 (87) 97 Room Air 07/26/17 20:05 98 Room Air 07/26/17 16:28 36.5 70 18 119/71 (87) 98 Room Air 07/26/17 16:00 Room Air Lab Results: Results Past 24 Hours Test 07/27/17 06:00 Range/Units White Blood Count 3.21 4.8-10.8 K/uL Red Blood Count 3.92 4.2-5.4 M/uL Hemoglobin 12.0 12.0-16.0 g/dL Hematocrit 34.4 37-47 % Mean Corpuscular Volume 87.8 80-100 fL Mean Corpuscular Hemoglobin 30.6 25-34 pg Mean Corpuscular Hemoglobin Concent 34.9 32-36 g/dl RDW Standard Deviation 40.0 36.4-46.3 fL RDW Coefficient of Variation 12.5 11.5-14.5 % Platelet Count 202 130-400 K/uL Mean Platelet Volume 8.7 7.4-10.4 fL
[2017-07-27 15:21] VITALS: BP 104/70; PULSE 68; TEMP 36.6; O2SAT 94
--- NOTE | 2017-07-27 16:13 | Discharge Summary ---
Discharge Summary Date of Service Jul 27, 2017. Discharge Summary Admission Date: Jul 24, 2017 at 20:19 Discharge Date: Jul 27, 2017 Discharge Disposition: Home Principal Diagnosis: SIGMOID DIVERTICULITIS Secondary Diagnoses/Problems: (1) Constipation Status: Chronic (2) Dyslipidemia Status: Chronic (3) GERD (gastroesophageal reflux disease) Status: Chronic (4) Hypothyroidism Status: Chronic (5) Obesity (BMI 30.0-34.9) Status: Chronic (6) PSVT (paroxysmal supraventricular tachycardia) Permanent Comment: s/p ablation Status: Chronic Procedures: CT ABD/PELVIS: 1. Evidence of acute uncomplicated diverticulitis of the sigmoid colon. No evidence of abscess or perforation. Follow-up colonoscopy after treatment is recommended given the patient's age to exclude neoplasm. 2. Large hiatal hernia. 3. 2.2 cm simple appearing cyst in the left ovary. In the setting of a late postmenopausal female, a simple appearing cyst less than 3 cm would be considered benign and no further follow-up would be recommended per the [employer] incidental findings committee recommendations for managing incidental findings on abdominal and pelvic CT and MRI. 4. Dependent opacities in the lungs may represent atelectasis. Nodularity in the lingula may also represent atypical atelectasis. Consultations: GI Medication Reconciliation New Medications: Ciprofloxacin Hcl (Cipro) 500 Mg Tab 500 MG PO BID for 10 Days, #20 TAB Lactobacillus Acidophilus (Lactinex) Tab 2 TAB PO BID for 14 Days, #56 TAB Metronidazole (Flagyl) 500 Mg Tab 500 MG PO TID for 10 Days, #30 TAB Continued Medications: Calcium Carbonate (Tums) 500 Mg Chew 500 MG PO DAILY Cholecalciferol (Kp Vitamin D) 1,000 Unit Cap 2000 UNITS PO DAILY for 90 Days, CAP 3 Refills Levothyroxine Sodium (Levothyroxine Sodium) 112 Mcg Tab 112 MCG PO DAILY for 90 Days, #90 TAB 3 Refills Lovastatin (Mevacor) 20 Mg Tab 20 MG PO Q2D, TAB take 20mg every other day in the evening with a meal Magnesium Hydroxide (Milk Of Magnesia) 30 Ml Susp 30 ML PO DAILY, ML Omeprazole (Prilosec) 20 Mg Capcr 20 MG PO DAILY, CAP Sumatriptan Succinate (Imitrex) 25 Mg Tab 1 DOSE PO UD, TAB take 50mg at onset of migraine and 25mg every 2 hours up to 5 tablets as needed Admission Information HPI (per Admitting provider): This is a 66 year old female with PMH of PSVT s/p ablation, hypothyroidism, dyslipidemia, GERD, and other problems listed below who presents to the ED for abdominal pain. Pt is a prior patient of Dr. Hensley. Pt reports LLQ abdominal pain x 3 days. Tried taking milk of magnesia without improvement. Was able to work the past few days, but then today pain was more severe which prompted her ER visit. Has associated chills. Denies N/V at home, but reports nausea /dry heaving in ER after drinking contrast. Nausea resolved with Zofran and Phenergan. Pain is now controlled after IV morphine and Dilaudid given in ER. Had reflux today which resolved with Tums. Last BM this morning was normal. Denies fever, dizziness, palpitations, chest pain, SOB, diarrhea, hematochezia, melena, urinary changes. Last colonoscopy in 01/[address] Gonzalez showed diverticulosis. Denies prior episode of diverticulitis. Physical Exam (per Admitting): General Appearance: WD/WN, no apparent distress Head: normocephalic, atraumatic Eyes: normal inspection, sclerae normal ENT: hearing grossly normal, pharynx normal Neck: supple, trachea midline Respiratory/Chest: lungs clear, normal breath sounds, no respiratory distress, no accessory muscle use Cardiovascular: regular rate, rhythm, no murmur Abdomen/GI: normal bowel sounds, soft, + tenderness (LLQ. no guarding. ) Extremities/Musculoskelatal: no calf tenderness, no pedal edema Neurologic/Psych: alert, normal mood/affect, oriented x 3 Skin: normal color, warm/dry Hospital Course ACUTE SIGMOID DIVERTICULITIS on iv Cipro and Flagyl\\ iv fluids pain meds and antiemetics prn tolerating clears seen by GI and no plan for colonoscopy as recent scope was fine improving and tolerating soft diet discharged on po abx to complete course of cipro and flagyl f/u with pcp HYPOTHYROIDISM On levothyroxine HX PSVT S/p ablation;stable DYSLIPIDEMIA On statin GERD On PPI discharged home Total time spent on discharge = 35MINUTES This includes examination of the patient, discharge planning, medication reconciliation, and communication with other providers. Discharge Instructions Discharge Instructions Date of Service Jul 27, 2017. Admission Reason for Admission: Diverticulitis Large Intestine Discharge Discharge Diagnosis / Problem: sigmoid diverticulitis Discharge Goals Goal(s): Decrease discomfort, Improve function Activity Recommendations Activity Limitations: resume your previous activity . Instructions / Follow-Up Instructions / Follow-Up FOLLOWUP WITH FAMILY DOCTOR ON June AT 1:25PM Current Hospital Diet Patient's current hospital diet: Low Fiber Diet Discharge Diet Recommended Diet: Low Fiber Diet (LOW FIBER DIET FOR FEW DAYS) Pending Studies Studies pending at discharge: no Work Instructions Return To Work: after follow-up Additional Instructions: LEAVE FROM WORK UNTIL SEEN BY FAMILY DOCTOR ON June. Medical Emergencies . Who to Call and When: Medical Emergencies: If at any time you feel your situation is an emergency, please call 911 immediately. . Non-Emergent Contact Non-Emergency issues call your: Primary Care Provider . . "Provider Documentation" section prepared by Ronaldo Macario. . VTE Core Measure Inpt VTE Proph given/why not?: Unfractionated heparin SQ
== END 2017-07-27 16:25 | disposition home or self-care (01) ==
LOC: C.EDB 13:05 → C.4E 20:19 → CMPBEDREQ 20:39 → ENRESERV 21:08
PROVIDERS: ADMIT Hospitalist; ATTEND Internal Medicine
DX: K57.32 Diverticulitis of large intestine without perforation or abscess without bleeding (principal); K59.09 Other constipation; E03.9 Hypothyroidism, unspecified; E78.5 Hyperlipidemia, unspecified; K21.9 Gastro-esophageal reflux disease without esophagitis; E66.9 Obesity, unspecified; Z83.3 Family history of diabetes mellitus; Z83.79 Family history of other diseases of the digestive system; Z79.899 Other long term (current) drug therapy

== ENCOUNTER 2017-08-04 14:16 | Emergency (ER) | payer OTHER ==
[~2017-08-04] VITALS: Ht 157.5 cm; Wt 81.0 kg
[~2017-08-04 14:16] MED LIST: CIPR-255 PO; LCTX PO; METR-163 PO
[2017-08-04 14:20] VITALS: TEMP 36.7; Ht 157.5 cm; Wt 81.0 kg
[2017-08-04] MEDS ORDERED: CHOL1CAP PO (15:10)
[2017-08-04] MEDS ORDERED: PRLSR20 PO (15:10)
[2017-08-04] MEDS ORDERED: LOVA20TA4 PO (15:10)
[2017-08-04] MEDS ORDERED: LEVO112T4 PO (15:10)
[2017-08-04] MEDS ORDERED: SUMA25TA12 PO (15:10)
[2017-08-04] MEDS ORDERED: CALC500C3 PO (15:10)
[2017-08-04] MEDS ORDERED: ONDANSETRON INJ 2 MG/ML 2 ML VIAL IV STA (15:12)
[2017-08-04] MEDS ORDERED: AMPICILLIN/SULBACTAM SOD INJ 3,000 MG in SODIUM CHLORIDE 0.9% 100ML 100 ML IV STA (15:12)
[2017-08-04] MEDS ORDERED: SODIUM CHLORIDE 0.9% 1000ML 1,000 ML IV STA (15:12)
[2017-08-04] MEDS ORDERED: MOML PO (15:13)
[2017-08-04 15:51] LABS: BASO % 0.4 %; BASO ABS # 0.02 K/uL (0-0.2); COMPLETE YES; EOS % 1.7 %; HEMATOCRIT 40.7 % (37-47); IG% 0.2 %; LYMPH ABS # 1.57 K/uL (1.2-3.4); MEAN CELL VOLUME 88.7 fL (80-100); MEAN CORPUSCULAR HEMOGLOBIN 31.4 pg (25-34); MEAN CORPUSCULAR HGB CONC 35.4 g/dl (32-36); MEAN PLATELET VOLUME 8.9 fL (7.4-10.4); MONO % 8.4 %; NEUT % 55.3 %; PLATELET COUNT 239 K/uL (130-400); RED BLOOD COUNT 4.59 M/uL (4.2-5.4); WHITE BLOOD COUNT 4.62 K/uL (4.8-10.8)
[2017-08-04 15:55] LABS: URINE APPEARANCE CLEAR (CLEAR); URINE BILIRUBIN NEG (NEG); URINE COLOR YELLOW; URINE EPITHELIAL CELL AUTO >30 /lpf (0-5); URINE NITRITE NEG (NEG); URINE PH 5.5 (4.5-7.5); URINE SPECIFIC GRAVITY 1.018 (1.000-1.030); UROBILINOGEN NEG (NEG)
[2017-08-04 16:04] LABS: MANUAL MICROSCOPIC REQUIRED? NO; REVIEW REQ? NO
[2017-08-04 16:07] LABS: ALT/SGPT 32 U/L (12-78); AST/SGOT 19 U/L (15-37); BLOOD UREA NITROGEN 8 mg/dl (7-18); BUN/CREATININE RATIO 9.9 (10-20); CALCIUM 9.2 mg/dl (8.5-10.1); CARBON DIOXIDE 28 mmol/L (21-32); CHLORIDE 104 mmol/L (98-107); CREATININE 0.81 mg/dl (0.60-1.20); GLUCOSE 104 mg/dl (70-99); POTASSIUM 3.5 mmol/L (3.5-5.1); SODIUM 137 mmol/L (136-145)
[2017-08-04 16:10] LABS: ALKALINE PHOSPHATASE 59 U/L (45-117)
--- NOTE | 2017-08-04 16:16 | DIAGNOSTIC IMAGING REPORT ---
ABDOMEN 2VIEW W/PA CHEST RTN CLINICAL HISTORY: ABDOMINAL PAIN/GI pain. Nausea. COMPARISON STUDY: No previous studies for comparison. FINDINGS: The soft tissues, psoas shadows, renal outlines and intestinal gas pattern appear normal. There is no evidence for bowel obstruction. There is no evidence for free intraperitoneal air. No abnormal abdominal calcifications are seen. A frontal view of the chest was performed and is unremarkable. Mild nonobstructive ileus with several air-filled loops of small bowel. IMPRESSION: 1. Negative chest. 2. Mild nonobstructive small bowel ileus. The above report was generated using voice recognition software. It may contain grammatical, syntax or spelling errors. Electronically signed by: Ant Leon M.D. 08/04/2017 4:15 PM Dictated Date/Time: 08/04/2017 4:14 PM
[2017-08-04] MEDS ORDERED: AMOX875T PO (16:44)
--- NOTE | 2017-08-04 17:29 | EMERGENCY ROOM VISIT NOTE ---
History Report prepared by Jermaine: Rodri Black Under the Supervision of: Dr. Rajiv Sims D.O. First contact with patient: 15:06 Chief Complaint: NAUSEA Stated Complaint: NAUSEA, DIVERTICULITIS Nursing Triage Summary: pt to the ED with c/o last thursday dx with diverticulitis dc from here 3 days later and c/o continued nausea and c/o pain that is not as bad as before History of Present Illness The patient is a 66 year old female who presents to the Emergency Room with complaints of intermittent abdominal pain beginning last week. The patient states that she developed left sided abdominal pain 8 days ago and was found to have diverticulitis. She was admitted as an inpatient and was discharged three days later. She states that she was started on antibiotics and probiotics which are making her feel sick. The patient states "I have been having good days and bad days". She also complains of nausea. She states that her abdominal pain has improved significantly, but is still present. The patient states that she has had loose stools today. She denies any fevers, or black or bloody stool. Her pain is improved with defecation. The patient states that she has had no pain today. Source of History: patient Onset: Last week Position: abdomen Timing: intermittent Modifying Factors (Relieving): defecation Associated Symptoms: + nausea, No melena, No hematochezia Review of Systems See HPI for pertinent positives & negatives. A total of 10 systems reviewed and were otherwise negative. Past Medical & Surgical Medical Problems: (1) Constipation (2) Dyslipidemia (3) GERD (gastroesophageal reflux disease) (4) Hypothyroidism (5) Obesity (BMI 30.0-34.9) (6) PSVT (paroxysmal supraventricular tachycardia) Surgical Problems: (1) H/O breast surgery (2) History of cataract surgery Family History Diabetes mellitus MOTHER SISTER GRANDMOTHER Social History Smoking Status: Never Smoker Drug Use: none Marital Status: Housing Status: lives with significant other Occupation Status: employed Current/Historical Medications Scheduled Amoxicillin & Pot Clavulanate (Augmentin 875-125 mg), 875 MG PO BID Calcium Carbonate (Tums), 500 MG PO DAILY Cholecalciferol (Kp Vitamin D), 2,000 INTER.UNIT PO DAILY Ciprofloxacin Hcl (Cipro), 500 MG PO BID Lactobacillus Acidophilus (Lactinex), 2 TAB PO BID Levothyroxine Sodium (Levothyroxine Sodium), 112 MCG PO DAILY Lovastatin (Mevacor), 20 MG PO Q2D Magnesium Hydroxide (Milk Of Magnesia), 30 ML PO DAILY Metronidazole (Flagyl), 500 MG PO TID Omeprazole (Prilosec), 20 MG PO DAILY Scheduled PRN Sumatriptan Succinate (Imitrex), 25 MG PO UD PRN for Migraine Allergies Coded Allergies: Sulfa Antibiotics (Verified Adverse Reaction, Mild, GI Symptoms, 07/24/17) Physical Exam Vital Signs Date Time Temp Pulse Resp B/P (MAP) Pulse Ox O2 Delivery O2 Flow Rate FiO2 08/04/17 17:49 65 20 121/68 100 08/04/17 15:57 63 20 131/52 08/04/17 15:38 63 08/04/17 14:20 36.7 108 18 123/70 94 Room Air Physical Exam GENERAL: Patient is awake, alert, and in no acute distress. Patient is resting comfortably and showing no signs of anxiety EYES: The conjunctivae are clear. The pupils are round and reactive. EARS, NOSE, MOUTH AND THROAT: The nose is without any evidence of any deformity. Mucous membranes are moist tongue is midline NECK: The neck is nontender and supple. RESPIRATORY: Normal respiratory effort is noted there is no evidence of wheezing rhonchi or rales CARDIOVASCULAR: Regular rate and rhythm noted there no murmurs rubs or gallops normal S1 normal S2 GASTROINTESTINAL: Bowel sounds are present in all quadrants. Abdomen is mildly distended, but soft. Tenderness to the LLQ. No rebound or guarding. MUSCULOSKELETAL/EXTREMITIES: There is no evidence of gross deformity full range of motion is noted in the hips and shoulders SKIN: There is no obvious evidence of any rash. There are no petechiae, pallor or cyanosis noted. NEUROLOGIC: Patient is awake alert and oriented x3. Medical Decision & Procedures ER Provider Diagnostic Interpretation: X-ray results as stated below per interpretation by me and the radiologist. ABDOMEN 2VIEW W/PA CHEST RTN FINDINGS: The soft tissues, psoas shadows, renal outlines and intestinal gas pattern appear normal. There is no evidence for bowel obstruction. There is no evidence for free intraperitoneal air. No abnormal abdominal calcifications are seen. A frontal view of the chest was performed and is unremarkable. Mild nonobstructive ileus with several air-filled loops of small bowel. IMPRESSION: 1. Negative chest. 2. Mild nonobstructive small bowel ileus. The above report was generated using voice recognition software. It may contain grammatical, syntax or spelling errors. Electronically signed by: Ant Leon M.D. 08/04/2017 4:15 PM Laboratory Results 08/04/17 15:22 Red Blood Count 4.59, Mean Corpuscular Volume 88.7, Mean Corpuscular Hemoglobin 31.4, Mean Corpuscular Hemoglobin Concent 35.4, Mean Platelet Volume 8.9, Neutrophils (%) (Auto) 55.3, Lymphocytes (%) (Auto) 34.0, Monocytes (%) (Auto) 8.4, Eosinophils (%) (Auto) 1.7, Basophils (%) (Auto) 0.4, Neutrophils # (Auto) 2.55, Lymphocytes # (Auto) 1.57, Monocytes # (Auto) 0.39, Eosinophils # (Auto) 0.08, Basophils # (Auto) 0.02 08/04/17 15:22 Test 08/04/17 15:22 White Blood Count 4.62 K/uL (4.8-10.8) Red Blood Count 4.59 M/uL (4.2-5.4) Hemoglobin 14.4 g/dL (12.0-16.0) Hematocrit 40.7 % (37-47) Mean Corpuscular Volume 88.7 fL (80-100) Mean Corpuscular Hemoglobin 31.4 pg (25-34) Mean Corpuscular Hemoglobin Concent 35.4 g/dl (32-36) Platelet Count 239 K/uL (130-400) Mean Platelet Volume 8.9 fL (7.4-10.4) Neutrophils (%) (Auto) 55.3 % Lymphocytes (%) (Auto) 34.0 % Monocytes (%) (Auto) 8.4 % Eosinophils (%) (Auto) 1.7 % Basophils (%) (Auto) 0.4 % Neutrophils # (Auto) 2.55 K/uL (1.4-6.5) Lymphocytes # (Auto) 1.57 K/uL (1.2-3.4) Monocytes # (Auto) 0.39 K/uL (0.11-0.59) Eosinophils # (Auto) 0.08 K/uL (0-0.5) Basophils # (Auto) 0.02 K/uL (0-0.2) RDW Standard Deviation 43.1 fL (36.4-46.3) RDW Coefficient of Variation 13.4 % (11.5-14.5) Immature Granulocyte % (Auto) 0.2 % Immature Granulocyte # (Auto) 0.01 K/uL (0.00-0.02) Urine Color YELLOW Urine Appearance CLEAR (CLEAR) Urine pH 5.5 (4.5-7.5) Urine Specific [place] 1.018 (1.000-1.030) Urine Protein NEG (NEG) Urine Glucose (UA) NEG (NEG) Urine Ketones NEG (NEG) Urine Occult Blood NEG (NEG) Urine Nitrite NEG (NEG) Urine Bilirubin NEG (NEG) Urine Urobilinogen NEG (NEG) Urine Leukocyte Esterase TRACE (NEG) Urine WBC (Auto) 1-5 /hpf (0-5) Urine RBC (Auto) 0-4 /hpf (0-4) Urine Hyaline Casts (Auto) 1-5 /lpf (0-5) Urine Epithelial Cells (Auto) >30 /lpf (0-5) Urine Bacteria (Auto) NEG (NEG) Anion Gap 5.0 mmol/L (3-11) Est Creatinine Clear Calc Drug Dose 67.4 ml/min Estimated GFR () 87.7 Estimated GFR (Non- 75.7 BUN/Creatinine Ratio 9.9 (10-20) Calcium Level 9.2 mg/dl (8.5-10.1) Total Bilirubin 0.3 mg/dl (0.2-1) Direct Bilirubin < 0.1 mg/dl (0-0.2) Aspartate Amino Transf (AST/SGOT) 19 U/L (15-37) Alanine Aminotransferase (ALT/SGPT) 32 U/L (12-78) Alkaline Phosphatase 59 U/L (45-117) Total Protein 7.0 gm/dl (6.4-8.2) Albumin 3.7 gm/dl (3.4-5.0) Lipase 210 U/L (73-393) Laboratory results per my review. Medications Administered Medications (Trade) Dose Ordered Sig/Ann Route Start Time Stop Time Status Last Admin Dose Admin Sodium Chloride 1,000 ml @ 999 mls/hr Q1H1M STAT IV 08/04/17 15:12 9/5/17 16:12 DC 08/04/17 16:13 999 MLS/HR Ondansetron HCl (Zofran Inj) 4 mg NOW STAT IV 08/04/17 15:12 08/04/17 15:13 DC 08/04/17 16:12 4 MG Ampicillin Sodium/ Sulbactam Sodium 3000 mg/Sodium Chloride 108 ml @ 200 mls/hr NOW STAT IV 08/04/17 15:12 08/04/17 15:44 DC 08/04/17 16:13 200 MLS/HR ED Course 1510: The patient was evaluated in room B2. A complete history and physical examination were performed. 151: Ordered Ampicillin Sodium/Sulbactam Sodium 3000 mg/NSS 108 mL @ 200 mls/ hr IV, Zofran Inj 4 mg IV, NSS 1,000 ml @ 999 mls/hr IV. 1655: Upon reevaluation, the patient is resting comfortably. I discussed the results and treatment plan with her. She verbalized agreement of the treatment plan. The patient was discharged home. Medical Decision Differential diagnosis: Etiologies such as appendicitis, diverticulitis, PUD, biliary pathology, UTI, pancreatitis, obstruction, mesenteric ischemia, aortic pathology, infections, inflammatory bowel disease, renal colic, as well as others were entertained. Nursing notes reviewed. Patient's previous electronic medical records reviewed. The patient is a 66-year-old female who presented to the emergency department for an evaluation of left-sided abdominal pain. The patient is had waxing and waning of pain for the last few days. She was recently diagnosed with diverticulitis and started on antibiotics. The patient's abdominal exam was not consistent with an acute surgical abdomen. She was treated with IV fluids in the emergency department. She was also given a different IV antibiotic. I discussed the patient's laboratory and radiographic studies with her. Her white blood cell count was not elevated and plain x-rays did not reveal any signs of free air. At this time I do not feel the patient has a diverticular abscess or perforation. I did explain to the patient that the testing that was done today may miss both of these conditions however she still may be amenable to medical therapy given a normal white count and no fever and no free air on the plain x- rays. She was encouraged to rest and avoid any strenuous activity. She was also encouraged to continue all medications as prescribed and start the new antibiotic as soon as possible. She was also encouraged to follow-up with her doctor to discuss GI follow-up but return to the emergency department immediately if symptoms change worsen or the need arises. Medication Reconcilliation Current Medication List: was personally reviewed by me Blood Pressure Screening Patient's blood pressure: Elevated blood pressure Blood pressure disposition: Elevated BP felt to be situational Impression Primary Impression: LLQ abdominal pain Additional Impression: Diverticulitis Scribe Attestation The scribe's documentation has been prepared under my direction and personally reviewed by me in its entirety. I confirm that the note above accurately reflects all work, treatment, procedures, and medical decision making performed by me. Departure Information Dispostion Home / Self-Care Prescriptions Amoxicillin & Pot Clavulanate (Augmentin 875-125 mg) 1 Tab Tab 875 MG PO BID, #20 TAB Prov: Rajiv Sims, DO 08/04/17 Referrals Lillian Turcios, D.OMelvin (PCP) Forms HOME CARE DOCUMENTATION FORM, IMPORTANT VISIT INFORMATION Patient Instructions Diverticulielsy Hunter, My [facility] Additional Instructions Call your doctor to schedule a follow up appointment. continue to take all medications as prescribed. Problem Qualifiers
[2017-08-04 17:49] VITALS: BP 121/68; PULSE 65; O2SAT 100
== END 2017-08-04 17:50 | disposition home or self-care (01) ==
LOC: C.EDB 14:20
DX: R10.32 Left lower quadrant pain (principal); K57.92 Diverticulitis of intestine, part unspecified, without perforation or abscess without bleeding; E03.9 Hypothyroidism, unspecified; E78.5 Hyperlipidemia, unspecified; K21.9 Gastro-esophageal reflux disease without esophagitis; Z98.49 Cataract extraction status, unspecified eye; Z98.890 Other specified postprocedural states; Z83.3 Family history of diabetes mellitus; Z79.899 Other long term (current) drug therapy

== ENCOUNTER 2018-01-29 14:36 | Emergency (ER) | payer OTHER ==
[~2018-01-29] VITALS: Ht 167.6 cm; Wt 80.6 kg
[~2018-01-29 14:36] MED LIST changes: +CALC500C3 PO; +CHOL1CAP PO; +LEVO112T4 PO; +LOVA20TA4 PO; +MOML PO; +PRLSR20 PO; +SUMA25TA12 PO
[2018-01-29 14:37] VITALS: TEMP 36.5; Ht 167.6 cm; Wt 80.6 kg
[2018-01-29] MEDS ORDERED: PROB1TAB16 PO (14:53)
[2018-01-29] MEDS ORDERED: ROSU20TA PO (14:53)
--- NOTE | 2018-01-29 14:58 | EMERGENCY ROOM VISIT NOTE ---
History Report prepared by Jermaine: Jose Cardenas Under the Supervision of: Dr. Rajiv Sims D.O. First contact with patient: 14:46 Chief Complaint: ABDOMINAL PAIN Stated Complaint: BELLY PAIN History of Present Illness The patient is a 67 year old female who presents to the Emergency Room with complaints of constant pain in the left side. The patient states that the pain was initially all in the left lower abdomen, but is now diffusely on the left side. The pain is worsened by bending over and walking up stairs. The patient added that she has a history of diverticulitis, and is unsure if this is the same. She denies any fevers, chills, or urinary symptoms. Source of History: patient Position: abdomen (Left side) Timing: constant Modifying Factors (Worsening): other (Bending over/walking up stairs. ) Associated Symptoms: No urinary symptoms Review of Systems See HPI for pertinent positives & negatives. A total of 10 systems reviewed and were otherwise negative. Past Medical & Surgical Medical Problems: (1) Constipation (2) Dyslipidemia (3) GERD (gastroesophageal reflux disease) (4) Hypothyroidism (5) Obesity (BMI 30.0-34.9) (6) PSVT (paroxysmal supraventricular tachycardia) Surgical Problems: (1) H/O breast surgery (2) History of cataract surgery Family History Diabetes mellitus MOTHER SISTER GRANDMOTHER Social History Smoking Status: Never Smoker Drug Use: none Marital Status: Housing Status: lives with significant other Occupation Status: employed Current/Historical Medications Scheduled Calcium Carbonate (Tums), 500 MG PO DAILY Cholecalciferol (Kp Vitamin D), 2,000 INTER.UNIT PO DAILY Ciprofloxacin Hcl (Cipro), 500 MG PO BID Lactobacillus Acidophilus (Lactinex), 2 TAB PO BID Levothyroxine Sodium (Levothyroxine Sodium), 112 MCG PO DAILY Metronidazole (Flagyl), 500 MG PO TID Omeprazole (Prilosec), 20 MG PO DAILY Probiotic Product (Probiotic), 1 DOSE PO DAILY Rosuvastatin Calcium (Crestor), 20 MG PO DAILY Scheduled PRN Oxycodone Immediate Rel Tab (Roxicodone Ir), 1-2 TAB PO Q4H PRN for Severe Pain Sumatriptan Succinate (Imitrex), 25 MG PO UD PRN for Migraine Allergies Coded Allergies: Sulfa Antibiotics (Verified Adverse Reaction, Mild, GI Symptoms, 01/29/18) Physical Exam Vital Signs Date Time Temp Pulse Resp B/P (MAP) Pulse Ox O2 Delivery O2 Flow Rate FiO2 01/29/18 16:05 70 18 123/66 98 Room Air 01/29/18 14:37 36.5 82 17 149/79 91 Room Air Physical Exam GENERAL: Patient is awake, alert, and in no acute distress. Patient is resting comfortably and showing no signs of anxiety EYES: The conjunctivae are clear. The pupils are round and reactive. EARS, NOSE, MOUTH AND THROAT: The nose is without any evidence of any deformity. Mucous membranes are moist tongue is midline NECK: The neck is nontender and supple. RESPIRATORY: Normal respiratory effort is noted there is no evidence of wheezing rhonchi or rales CARDIOVASCULAR: Regular rate and rhythm noted there no murmurs rubs or gallops normal S1 normal S2 GASTROINTESTINAL: The abdomen is mildly distended but soft. The left lower quadrant is tender to palpation, there is no guarding or rigidity. PELVIS: The Pelvis is stable. No tenderness to palpation is noted. BACK: No midline tenderness or or step-off noted range of motion in flexion extension as well as rotation no signs of muscle spasm noted MUSCULOSKELETAL/EXTREMITIES: There is no evidence of gross deformity full range of motion is noted in the hips and shoulders SKIN: There is no obvious evidence of any rash. There are no petechiae, pallor or cyanosis noted. NEUROLOGIC: Patient is awake alert and oriented x3. Medical Decision & Procedures ER Provider Diagnostic Interpretation: Radiology results as stated below per my review and radiologist interpretation: ABD/PELVIS NO IV OR ORAL CONT CT DOSE: 672.32 mGy.cm HISTORY: Flank pain LLQ pain TECHNIQUE: Multiaxial CT images of the abdomen and pelvis were performed without contrast. A dose lowering technique was utilized adhering to the principles of ALARA. COMPARISON STUDY: 07/24/2017 FINDINGS: Mild dependent basilar atelectasis. Fixed hiatal hernia. Several hepatic cysts unchanged. Spleen is uniform. Pancreas is unremarkable. Kidneys negative for calcification or hydronephrosis. Several left and to a lesser extent right parapelvic cyst. There The upper abdominal bowel pattern is nonobstructive. There are findings of chronic sigmoid diverticulosis with a trace amount of pericolonic infiltrative change. Minimal acute diverticulitis is considered. No evidence for abscess collection or obstruction. 1.8 cm left ovarian cyst slightly decreased in size in the prior exam. IMPRESSION: 1. Chronic sigmoid diverticulosis with minimal superimposed acute diverticulitis. 2. No evidence for abscess collection or obstruction. 3. Mild chronic descending colonic diverticulosis. 4. Stable left ovarian and renal as well as hepatic cysts. The above report was generated using voice recognition software. It may contain grammatical, syntax or spelling errors. Electronically signed by: Ant Leon M.D. 01/29/2018 3:29 PM Dictated Date/Time: 01/29/2018 3:24 PM Laboratory Results 01/29/18 14:57 Red Blood Count 4.57, Mean Corpuscular Volume 88.0, Mean Corpuscular Hemoglobin 31.5, Mean Corpuscular Hemoglobin Concent 35.8, Mean Platelet Volume 9.0, Neutrophils (%) (Auto) 55.2, Lymphocytes (%) (Auto) 35.7, Monocytes (%) (Auto) 7.0, Eosinophils (%) (Auto) 1.4, Basophils (%) (Auto) 0.5, Neutrophils # (Auto) 2.43, Lymphocytes # (Auto) 1.57, Monocytes # (Auto) 0.31, Eosinophils # (Auto) 0.06, Basophils # (Auto) 0.02 01/29/18 14:57 Test 01/29/18 14:50 01/29/18 14:57 Urine Color YELLOW Urine Appearance CLEAR (CLEAR) Urine pH 5.5 (4.5-7.5) Urine Specific Bre[place] 1.011 (1.000-1.030) Urine Protein NEG (NEG) Urine Glucose (UA) NEG (NEG) Urine Ketones TRACE (NEG) Urine Occult Blood 1+ (NEG) Urine Nitrite NEG (NEG) Urine Bilirubin NEG (NEG) Urine Urobilinogen NEG (NEG) Urine Leukocyte Esterase TRACE (NEG) Urine WBC (Auto) 1-5 /hpf (0-5) Urine RBC (Auto) 0-4 /hpf (0-4) Urine Hyaline Casts (Auto) 0 /lpf (0-5) Urine Epithelial Cells (Auto) 20-30 /lpf (0-5) Urine Bacteria (Auto) NEG (NEG) White Blood Count 4.40 K/uL (4.8-10.8) Red Blood Count 4.57 M/uL (4.2-5.4) Hemoglobin 14.4 g/dL (12.0-16.0) Hematocrit 40.2 % (37-47) Mean Corpuscular Volume 88.0 fL (80-100) Mean Corpuscular Hemoglobin 31.5 pg (25-34) Mean Corpuscular Hemoglobin Concent 35.8 g/dl (32-36) Platelet Count 197 K/uL (130-400) Mean Platelet Volume 9.0 fL (7.4-10.4) Neutrophils (%) (Auto) 55.2 % Lymphocytes (%) (Auto) 35.7 % Monocytes (%) (Auto) 7.0 % Eosinophils (%) (Auto) 1.4 % Basophils (%) (Auto) 0.5 % Neutrophils # (Auto) 2.43 K/uL (1.4-6.5) Lymphocytes # (Auto) 1.57 K/uL (1.2-3.4) Monocytes # (Auto) 0.31 K/uL (0.11-0.59) Eosinophils # (Auto) 0.06 K/uL (0-0.5) Basophils # (Auto) 0.02 K/uL (0-0.2) RDW Standard Deviation 42.1 fL (36.4-46.3) RDW Coefficient of Variation 13.2 % (11.5-14.5) Immature Granulocyte % (Auto) 0.2 % Immature Granulocyte # (Auto) 0.01 K/uL (0.00-0.02) Anion Gap 9.0 mmol/L (3-11) Est Creatinine Clear Calc Drug Dose 66.4 ml/min Estimated GFR () 78.8 Estimated GFR (Non- 68.0 BUN/Creatinine Ratio 11.8 (10-20) Calcium Level 9.7 mg/dl (8.5-10.1) Total Bilirubin 0.7 mg/dl (0.2-1) Direct Bilirubin mg/dl (0-0.2) Aspartate Amino Transf (AST/SGOT) U/L (15-37) Alanine Aminotransferase (ALT/SGPT) 32 U/L (12-78) Alkaline Phosphatase 75 U/L (45-117) Total Protein 8.0 gm/dl (6.4-8.2) Albumin 4.1 gm/dl (3.4-5.0) Lipase 178 U/L (73-393) Laboratory results per my review. Medications Administered Medications (Trade) Dose Ordered Sig/Ann Route Start Time Stop Time Status Last Admin Dose Admin Ciprofloxacin (Cipro Tab) 500 mg NOW STAT PO 01/29/18 15:44 01/29/18 15:45 DC 01/29/18 16:04 500 MG Metronidazole (Flagyl Tab) 500 mg NOW STAT PO 01/29/18 15:44 01/29/18 15:45 DC 01/29/18 16:04 500 MG ED Course 1450: The patient was evaluated in room C3. A complete history and physical examination were performed. 1544: Ordered Flagyl 500 mg PO, Cipro 500 mg PO. 1556: Upon reevaluation, the patient is resting . I discussed the results and treatment plan with her. She verbalized agreement of the treatment plan. The patient was discharged home. Medical Decision Differential diagnosis: Etiologies such as appendicitis, diverticulitis, PUD, biliary pathology, UTI, pancreatitis, obstruction, mesenteric ischemia, aortic pathology, infections, inflammatory bowel disease, renal colic, as well as others were entertained. Nursing notes reviewed. The patient is a 67-year-old female who presented to the emergency department for an evaluation of left lower quadrant abdominal pain. The patient did not have a history and physical exam consistent with an acute surgical abdomen however she does have a history of diverticulitis. Her physical exam appear to be consistent with diverticulitis. Radiographic studies revealed an early diverticulitis. The patient was concerned about her symptoms because she is leaving tomorrow on a trip to [place]. I do feel it is likely that this is early diverticulitis and the patient will likely do well with antibiotic therapy. She was encouraged to continue all medications as prescribed and drink plenty clear liquids. Otherwise she was encouraged to follow-up with her primary care physician for further evaluation but return to the emergency department immediately if symptoms change worsen or the need arises. I also pointed out to the patient that this was her second episode of diverticulitis in 12 months. Medication Reconcilliation Current Medication List: was personally reviewed by me Blood Pressure Screening Patient's blood pressure: Elevated blood pressure Impression Primary Impression: LLQ abdominal pain Additional Impression: Diverticulitis Scribe Attestation The scribe's documentation has been prepared under my direction and personally reviewed by me in its entirety. I confirm that the note above accurately reflects all work, treatment, procedures, and medical decision making performed by me. Departure Information Dispostion Home / Self-Care Prescriptions Oxycodone Immediate Rel Tab (ROXICODONE IR) 5 Mg Tab 1-2 TAB PO Q4H Y for Severe Pain, #20 TAB Prov: Rajiv Sims, DO 01/29/18 Metronidazole (FLAGYL) 500 Mg Tab 500 MG PO TID, #30 TAB Prov: Rajiv Sims, DO 18 Ciprofloxacin Hcl (CIPRO) 500 Mg Tab 500 MG PO BID, #20 TAB Prov: Rajiv Sims, DO 01/29/18 Referrals Lillian Turcios D.O. (PCP) Forms Call Back Authorization, HOME CARE DOCUMENTATION FORM, IMPORTANT VISIT INFORMATION Patient Instructions [facility] Additional Instructions Continue all medications as prescribed. Continue using Motrin and Tylenol as directed for mild pain. Call your family doctor to schedule a follow-up appointment. If you decide to take the stronger pain medication I would recommend an [id number] stool softener. Problem Qualifiers
[2018-01-29 15:11] LABS: BASO % 0.5 %; BASO ABS # 0.02 K/uL (0-0.2); EOS % 1.4 %; EOS ABS # 0.06 K/uL (0-0.5); HEMATOCRIT 40.2 % (37-47); HEMOGLOBIN 14.4 g/dL (12.0-16.0); IG# 0.01 K/uL (0.00-0.02); LYMPH % 35.7 %; LYMPH ABS # 1.57 K/uL (1.2-3.4); MEAN CORPUSCULAR HEMOGLOBIN 31.5 pg (25-34); MEAN CORPUSCULAR HGB CONC 35.8 g/dl (32-36); MONO ABS # 0.31 K/uL (0.11-0.59); NEUT % 55.2 %; NEUT ABS # 2.43 K/uL (1.4-6.5); PLATELET COUNT 197 K/uL (130-400); RED CELL DISTRIBUTION WIDTH CV 13.2 % (11.5-14.5); RED CELL DISTRIBUTION WIDTH SD 42.1 fL (36.4-46.3)
--- NOTE | 2018-01-29 15:30 | DIAGNOSTIC IMAGING REPORT ---
ABD/PELVIS NO IV OR ORAL CONT CT DOSE: 672.32 mGy.cm HISTORY: Flank pain LLQ pain TECHNIQUE: Multiaxial CT images of the abdomen and pelvis were performed without contrast. A dose lowering technique was utilized adhering to the principles of ALARA. COMPARISON STUDY: 07/24/2017 FINDINGS: Mild dependent basilar atelectasis. Fixed hiatal hernia. Several hepatic cysts unchanged. Spleen is uniform. Pancreas is unremarkable. Kidneys negative for calcification or hydronephrosis. Several left and to a lesser extent right parapelvic cyst. There The upper abdominal bowel pattern is nonobstructive. There are findings of chronic sigmoid diverticulosis with a trace amount of pericolonic infiltrative change. Minimal acute diverticulitis is considered. No evidence for abscess collection or obstruction. 1.8 cm left ovarian cyst slightly decreased in size in the prior exam. IMPRESSION: 1. Chronic sigmoid diverticulosis with minimal superimposed acute diverticulitis. 2. No evidence for abscess collection or obstruction. 3. Mild chronic descending colonic diverticulosis. 4. Stable left ovarian and renal as well as hepatic cysts. The above report was generated using voice recognition software. It may contain grammatical, syntax or spelling errors. Electronically signed by: Ant Leon M.D. 01/29/2018 3:29 PM Dictated Date/Time: 01/29/2018 3:24 PM
[2018-01-29 15:35] LABS: ALBUMIN 4.1 gm/dl (3.4-5.0); ALKALINE PHOSPHATASE 75 U/L (45-117); ALT/SGPT 32 U/L (12-78); BLOOD UREA NITROGEN 10 mg/dl (7-18); CALCIUM 9.7 mg/dl (8.5-10.1); CARBON DIOXIDE 24 mmol/L (21-32); GLUCOSE 90 mg/dl (70-99); LIPASE 178 U/L (73-393); SODIUM 137 mmol/L (136-145)
[2018-01-29] MEDS ORDERED: METRONIDAZOLE 250 MG TAB PO STA (15:44)
[2018-01-29] MEDS ORDERED: CIPROFLOXACIN 500 MG TAB PO STA (15:44)
[2018-01-29] MEDS ORDERED: METR-162 PO (15:50)
[2018-01-29] MEDS ORDERED: CIPR-255 PO (15:50)
[2018-01-29] MEDS ORDERED: OXYC1TAB3 PO (15:50)
[2018-01-29 15:58] LABS: CREATININE 0.88 mg/dl (0.60-1.20)
[2018-01-29 16:05] VITALS: BP 123/66; PULSE 70; O2SAT 98
== END 2018-01-29 16:10 | disposition home or self-care (01) ==
LOC: C.EDB 14:37 → C.EDC 16:10
DX: R10.32 Left lower quadrant pain (principal); K57.92 Diverticulitis of intestine, part unspecified, without perforation or abscess without bleeding; E78.5 Hyperlipidemia, unspecified; E03.9 Hypothyroidism, unspecified; K21.9 Gastro-esophageal reflux disease without esophagitis; Z79.899 Other long term (current) drug therapy; Z88.1 Allergy status to other antibiotic agents; Z88.2 Allergy status to sulfonamides; Z83.3 Family history of diabetes mellitus